=== PATIENT | female | born 1940 | race Caucasian/White ===

== ENCOUNTER → 2023-08-15 09:11 | Outpatient (REF) | payer MEDICARE, SELFPAY | LOC: HWRAD 09:11 | PROVIDERS: ATTENDING PHYSICIAN Physician Assistant Medical; FAMILY PHYSICIAN Family Medicine | DX: R05.9 Cough, unspecified (principal) | CPT/HCPCS: 71046 ==

== ENCOUNTER 2024-09-05 19:23 | Emergency (ER) | payer MEDICARE, SELFPAY ==
[2024-09-05 19:28] VITALS: BP 142/79
[2024-09-05 19:29] VITALS: BP 142/79; BMI 26.4
[2024-09-05 19:42] LABS: Hematocrit 37.7 % (37.0-47.0); Hemoglobin 12.5 g/dL (12.0-16.0); Mean Corp Hgb Conc. 33.2 g/dL (33.0-37.0); Mean Corpuscular Volume 94.7 fL (81.0-99.0); Nucleated Red Blood Cells % 0 %; Platelet Count 141 10^3/uL (130-400); Red Cell Dist. Width 12.1 % (11.5-14.5)
[2024-09-05 19:54] LABS: ALT (SGPT) 34 U/L (0-35); AST (SGOT) 38 U/L (14-36); Albumin 3.8 g/dl (3.5-5.0); Alkaline Phosphatase 120 U/L (38-126); Blood Urea Nitrogen 35 mg/dl (7-17); Calcium 9.3 mg/dl (8.4-10.2); Carbon Dioxide 26 mmol/L (22-30); Chloride 112 mmol/L (98-107); Estimated Creatinine Clearance 31 ml/min; Glucose 164 mg/dl (70-99); Lipase 194 U/L (23-300); Potassium 3.8 mmol/L (3.5-5.1); Sodium 140 mmol/L (135-145); Total Protein 6.5 g/dl (6.3-8.2); eGFR 44.36
--- NOTE | 2024-09-05 20:15 | EDRN ---
patient ambulated to the restroom, had some bloody diarrhea noted, patient back in bed resting, placed a hat in toilet if she goes again to collect sample
[2024-09-05 21:00] VITALS: BP 147/57
[2024-09-05] MEDS: ZOFRAN 4 MG IV (21:08)
[2024-09-05] MEDS: NSS 1000 IV (21:08)
--- NOTE | 2024-09-05 21:17 | EDRN ---
Patient had a vomiting episode and another episode of diarrhea, patient was medicated for nausea and cleaned up, pulled up in bed and resting comfortably with at bedside
--- NOTE | 2024-09-05 21:39 | ED.GENMED ---
History of Present Illness
General
Chief Complaint: Abdominal Symptoms
Time Seen by Provider: 09/05/24 19:48
History of Present Illness
History of Present Illness:
84-year-old female with history of dementia, hypertension, IBS presenting for vomiting and diarrhea. Patient arrives with daughter and who report that she ate some leftover lunch today, pasta salad from a barbecue yesterday. About 15
minutes later, was pointing to her stomach and started vomiting in the bathroom. She then had multiple episodes of loose diarrhea. notes this has happened to her in the past. ate similar foods and he is not ill. Patient is very
limited historian given her underlying dementia. No report of any fevers. No additional history obtained at this time given limited historian
Past History
Past History
ED Past Medical History: GERD and Other (Thyroid nodules, irritable bowel syndrome)
ED Past Surgical History: Other (Cerebral aneurysm clipping)
Social History
Tobacco: Non-smoker
Alcohol: Occasional
Personal:
Living: with family
Family History
Family History: CAD and Other (Sister of a CVA)
Phy Exam
Physical Exam
Physical Exam:
General: Well-appearing, no clinical signs of dehydration, nontoxic and in no acute distress
HEENT: protecting airway
Neck: appears supple
CV: Normal heart rate, regular rhythm
Resp: No accessory muscle use, no increased work of breathing, lungs clear to auscultation bilaterally
Abd: Soft and non-distended, no tenderness to palpation
Extremities: No deformities, no swelling
Neuro: alert, disoriented
: deferred
Rectal: deferred
Psych: Normal affect
Skin: Intact
Course
Orders/Labs/Results
Orders:
Orders
09/05/24 19:27
IV Insert/Care/Rem.- Treatment PRN
09/05/24 19:30
Complete Blood Count/With Diff Urgent
Comprehensive Metabolic Panel Urgent
Lipase Urgent
09/05/24 20:50
0.9% Sodium Chloride 1000 ml [Nss] 1,000 ml IV BOLUS
Ondansetron Injectable [Zofran] 4 mg IV NOW STA
09/05/24 22:58
0.9% Sodium Chloride 500 ml [Nss] 500 ml IV BOLUS
09/06/24 00:00
CT Abd/pelvis W Iv Cont Urgent
Reason For Exam: vomiting and diarrhea
Abnormal Lab Results
09/05/24
19:30
WBC 14.8 H 10^3/uL
(4.8-10.8)
RBC 3.98 L 10^6/uL
(4.20-5.40)
MCH 31.4 H pg
(27.0-31.0)
Abs Immat Gran (auto) 0.1 H 10^3/uL
(0-0.05)
Absolute Neuts (auto) 13.1 H 10^3/uL
(1.4-6.5)
Absolute Lymphs (auto) 1.0 L 10^3/uL
(1.2-3.4)
Neutrophils % 88.6 H %
(42.2-75.2)
Lymphocytes % 6.8 L %
(20.5-51.1)
Chloride 112 H mmol/L
(98-107)
BUN 35 H mg/dl
(7-17)
Creatinine 1.2 H mg/dL
(0.6-1.0)
Glucose 164 H mg/dl
(70-99)
AST 38 H U/L
(14-36)
09/05/24 19:30
09/05/24 19:30
Vital Signs
Initial and Last Documented VS:
Initial Vital Signs
Resp
19
09/05/24 19:27
Last Documented Vital Signs
Temp Pulse Resp BP Pulse Ox
97.2 F 84 17 118/101 93
09/05/24 19:29 09/06/24 01:15 09/06/24 01:00 09/06/24 01:00 09/05/24 23:45
MDM/Problems Addressed
MDM/Problems Addressed:
84-year-old female with history of dementia presenting for nausea, vomiting, diarrhea which started acutely prior to arrival. Vital signs on arrival are normal.
On exam, patient is resting comfortably, no acute distress. She is nontoxic in appearance. Generalized discomfort on palpation of the abdomen, however no focal tenderness, no distention, no rebound or guarding. Symptoms appear most consistent
with gastroenteritis, likely foodborne, given that it was preceded by food. Lower suspicion for serious intra-abdominal process or infection, however given the patient is a limited historian, will plan for laboratory analysis and CT abdominal
imaging. Will treat patient with IV fluids and Zofran.
22:45 -on reassessment, patient is sleeping comfortably, no acute distress. No further emesis. Pending CT with likely disposition home if CT within normal limits
*Pulse Oximetry
SaO2: 98
Oxygen Mode of Delivery: Room air
Patient hypoxic: no
*Critical Care Note
Total Time (30-74mins, 75-104mins- exclusive of procedures): Not Applicable
ED Attending Note
-
Portions of this chart may have been created with voice recognition software.� Occasional wrong word or��sound alike� substitutions may have occurred due to the inherent limitations of voice recognition software.
Discharge Plan
Departure
Patient Disposition: Home (Routine Discharge)
Date of Disposition: 09/06/24
Time of Disposition: 01:15
Patient with high blood pressure during this ER visit?: No
Condition: Good
Discharge Problem:
Gastroenteritis, Vomiting and diarrhea
Instructions: Viral gastroenteritis in adults, Smith Diet, Nausea and Vomiting, Adult (DC), Smith diet
Prescriptions:
No Action
atenolol 50 MG tablet
50 mg PO DAILY
famotidine 40 mg tablet
40 mg PO Q48H
aspirin 81 mg Tablet,Delayed Release (Dr/Ec)
81 mg PO DAILY
pantoprazole 40 mg tablet,delayed release (DR/EC)
40 mg PO DAILY
lisinopril 10 mg tablet
10 mg PO DAILY
rosuvastatin 20 mg tablet
20 mg PO DAILY
Multivitamin Gummies 200 mcg Tablet,Chewable
2 tab PO DAILY
memantine 21 mg Capsule,Sprinkle,Er 24hr
21 mg PO DAILY
amoxicillin-pot clavulanate [Augmentin] 500-125 mg tablet
1 tab PO BID Qty: 10 0RF
Referrals:
Moy Goel DO [Primary Care Provider, [facility]]
Activity Restrictions/Additional Instructions:
You were seen in the emergency department for nausea, vomiting, diarrhea
You were found to have reassuring laboratory analysis and CT imaging of your abdomen. We suspect you have a gastroenteritis which is inflammation to your colon, likely from a foodborne illness or viral infection. Please continue to drink plenty of
fluids to stay hydrated. You should stick to a liquid diet for the first 24 hours and then transition to a bland diet for the next 2 or 3 days afterwards. Once you are feeling completely better you can return to your normal diet.
Please follow-up closely with your primary care physician.
Return to the emergency department for any worsening of your symptoms, or any development of chest pain, difficulty breathing, abdominal pain with persistent vomiting and inability to tolerate food or liquid by mouth (concern for dehydration),
weakness, headache or confusion, fever greater than 100.4, or any additional symptoms that are concerning to you.
Thank you for choosing [facility].
Interventions
Interventions:
*Risk Screen - Suicide Last Done: 09/05/24 19:29
*General Assessment Last Done: 09/05/24 19:29
*Neglect/Abuse Screening Last Done: 09/05/24 19:29
*ED- Fall Risk Assessment Last Done: 09/05/24 19:29
*ED COVID-19 Vaccine History Last Done: 09/05/24 19:29
*Nursing Disposition Last Done: 09/06/24 01:59
EP-[id number]-[id number] Assessment Last Done: 09/05/24 19:56
Discharge Date and Time
Discharge Date/Time: 09/06/24 01:59
Print Language: MONTSERRATIAN
[2024-09-05] MEDS: NSS 500 IV (22:58)
[2024-09-05 23:00] VITALS: BP 126/67
--- NOTE | 2024-09-05 23:15 | EDRN ---
Updated patient and family on CT status and gave her some ice chips, patient looks like she is feeling better
--- NOTE | 2024-09-05 23:55 | EDRN ---
Patient ambulatory, to the restroom to have an episode of bloody diarrhea, at bedside aware we are waiting on her CT scan.
[2024-09-06] VITALS: BP 124/67
[2024-09-06 01:00] VITALS: BP 118/101
== END 2024-09-06 01:59 | disposition home or self-care (01) ==
LOC: EMR 19:23
PROVIDERS: EMERGENCY PHYSICIAN Student in an Organized Health Care Education/Training Program; PRIMARYCARE PHYSICIAN Family Medicine
DX: K52.9 Noninfective gastroenteritis and colitis, unspecified (principal); F03.90 Unspecified dementia, unspecified severity, without behavioral disturbance, psychotic disturbance, mood disturbance, and anxiety; I10 Essential (primary) hypertension
CPT/HCPCS: 96374; 96361; 99284; 74177; 80053; 83690; 85025; Q9967

== ENCOUNTER → 2024-11-13 09:37 | Outpatient (REF) | payer MEDICARE, SELFPAY ==
[2024-11-13 12:26] LABS: Hematocrit 37.0 % (37.0-47.0); Hemoglobin 12.3 g/dL (12.0-16.0); Mean Corp Hgb Conc. 33.2 g/dL (33.0-37.0); Mean Corpuscular Volume 94.4 fL (81.0-99.0); Nucleated Red Blood Cells % 0 %; Platelet Count 168 10^3/uL (130-400); Red Cell Dist. Width 12.1 % (11.5-14.5)
[2024-11-13 12:58] LABS: ALT (SGPT) 23 U/L (0-35); AST (SGOT) 25 U/L (14-36); Albumin 4.0 g/dl (3.5-5.0); Alkaline Phosphatase 76 U/L (38-126); Blood Urea Nitrogen 30 mg/dl (7-17); Calcium 9.6 mg/dl (8.4-10.2); Carbon Dioxide 28 mmol/L (22-30); Chloride 107 mmol/L (98-107); Glucose 102 mg/dl (70-99); Potassium 4.5 mmol/L (3.5-5.1); Sodium 140 mmol/L (135-145); Total Protein 6.7 g/dl (6.3-8.2); eGFR 44.36
== END ==
LOC: HWLAB 09:37
PROVIDERS: ATTENDING PHYSICIAN Surgery; FAMILY PHYSICIAN Physician Assistant Medical
DX: Z01.818 Encounter for other preprocedural examination (principal); R92.8 Other abnormal and inconclusive findings on diagnostic imaging of breast; N63.42 Unspecified lump in left breast, subareolar
CPT/HCPCS: 36415; 80053; 85025; 93005